=== PATIENT | female | born 1995 ===

== ENCOUNTER 2020-07-31 05:45 | Emergency (ER) | payer SELFPAY ==
[2020-07-31] MEDS ORDERED: DIPHENHYDRAMINE 25 MG TAB/CAP ONE (06:21)
[2020-07-31] MEDS ORDERED: FAMOTIDINE 20 MG TAB ONE (06:21)
[2020-07-31] MEDS ORDERED: predniSONE 20 MG TAB ONE (06:22)
--- NOTE | 2020-07-31 06:25 | ER ---
Nurse's Notes [facility] Name: Noe Etienne Age: 24 yrs Sex: Female : 1995 Arrival Date: 07/31/2020 Time: 05:50 Bed Waiting Private MD: Diagnosis: Allergic state Presentation: 07/31 05:59 Chief complaint: Patient states: she was at work yesterday and about the last hour of bb her shift she started itching a lot and started having swelling to her hands with bumps on her knees, thighs, and forearms she has been using benadry cream but it is not helping. Coronavirus screen: At this time, the client does not indicate any symptoms associated with coronavirus-19. Ebola Screen: No symptoms or risks identified at this time. Onset: The symptoms/episode began/occurred yesterday. Anaphylaxis evaluation, no signs or symptoms of anaphylaxis were noted. Initial Sepsis Screen: Does the patient meet any 2 criteria? No. Patient's initial sepsis screen is negative. Does the patient have a suspected source of infection? No. Patient's initial sepsis screen is negative. Risk Assessment: Do you want to hurt yourself or someone else? Patient reports no desire to harm self or others. Onset of symptoms was July 30, 2020. 05:59 Method Of Arrival: Ambulatory bb 05:59 Acuity: VERENICE 4 bb Triage Assessment: 06:02 General: Appears in no apparent distress. Behavior is calm, cooperative. Pain: Denies bb pain. Neuro: Level of Consciousness is awake, alert, obeys commands, Oriented to person, place, time, situation. Cardiovascular: Capillary refill < 3 seconds Patient's skin is warm and dry. Respiratory: Respiratory effort is even, unlabored, Respiratory pattern is regular. GI: No signs and/or symptoms were reported involving the gastrointestinal system. Derm: Rash noted that is papular. Musculoskeletal: Circulation, motion, and sensation intact. 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 - Social history:: Smoking status: Patient denies any tobacco usage or history of. Screenin:31 Abuse screen: Denies threats or abuse. Nutritional screening: No deficits noted. bb Tuberculosis screening: No symptoms or risk factors identified. Fall Risk None identified. Assessment: 06:12 Reassessment: Dr Ag in triage for pt evaluation. bb 06:31 Respiratory: Airway is patent Breath sounds are clear bilaterally. bb Vital Signs: 05:59 BP 117 / 83; Pulse 65; Resp 14 S; Temp 98.1(O); Pulse Ox 100% on R/A; Weight 68.04 kg bb (R); Height 5 ft. 9 in. (175.26 cm) (R); Pain 8/10; 05:59 Body Mass Index 22.15 (68.04 kg, 175.26 cm) bb 05:59 irritation bb ED Course: 05:50 Patient arrived in ED. ag3 06:01 Triage completed. bb 06:02 Arm band placed on. bb 06:23 Frank Ag MD is Attending Physician. tw4 06:31 Patient has correct armband on for positive identification. bb 06:31 No provider procedures requiring assistance completed. Patient did not have IV access bb during this emergency room visit. Administered Medications: 06:14 Drug: predniSONE 60 mg Route: PO; bb 06:30 Follow up: Response: No adverse reaction bb 06:14 Drug: Pepcid 20 mg Route: PO; bb 06:31 Follow up: Response: No adverse reaction bb 06:14 Drug: Benadryl 25 mg Route: PO; bb 06:31 Follow up: Response: No adverse reaction bb Outcome: 06:24 Discharge ordered by . tw4 06:31 Discharged to home ambulatory. bb 06:31 Condition: stable 06:31 Discharge instructions given to patient, Instructed on discharge instructions, follow up and referral plans. medication usage, Demonstrated understanding of instructions, follow-up care, medications, Prescriptions given X 2. 06:32 Patient left the ED. bb Signatures: Kathie Rudolph RN RN Frank Garcia MD MD tw4 Noemí Ramirez ag3
--- NOTE | 2020-07-31 06:25 | EDPHYS ---
Physician Documentation [facility] Name: Noe Etienne Age: 24 yrs Sex: Female : 1995 Arrival Date: 07/31/2020 Time: 05:50 Bed Waiting Private MD: ED Physician Frank Ag HPI: 07/31 06:27 This 24 yrs old Female presents to ER via Ambulatory with complaints of Itching, Skin tw4 Problem. 06:27 The patient presents with itching, rash. Onset: The symptoms/episode began/occurred tw4 just prior to arrival, today. Associated signs and symptoms: The patient has no apparent associated signs or symptoms. Possible causes: The patient has no known obvious cause for the symptoms. At home the patient or guardian has treated the symptoms with Benadryl. The patient has not experienced similar symptoms in the past. 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 - Social history:: Smoking status: Patient denies any tobacco usage or history of. ROS: 06:27 Constitutional: Negative for fever, chills, and weight loss, Eyes: Negative for injury, tw4 pain, redness, and discharge, Cardiovascular: Negative for chest pain, palpitations, and edema, Respiratory: Negative for shortness of breath, cough, wheezing, and pleuritic chest pain, Abdomen/GI: Negative for abdominal pain, nausea, vomiting, diarrhea, and constipation, Back: Negative for injury and pain. 06:27 Skin: Positive for rash. Exam: 06:27 Constitutional: This is a well developed, well nourished patient who is awake, alert, tw4 and in no acute distress. Head/Face: Normocephalic, atraumatic. Chest/axilla: Normal chest wall appearance and motion. Nontender with no deformity. No lesions are appreciated. Cardiovascular: Regular rate and rhythm with a normal S1 and S2. No gallops, murmurs, or rubs. Normal PMI, no JVD. No pulse deficits. Respiratory: Lungs have equal breath sounds bilaterally, clear to auscultation and percussion. No rales, rhonchi or wheezes noted. No increased work of breathing, no retractions or nasal flaring. Abdomen/GI: Soft, non-tender, with normal bowel sounds. No distension or tympany. No guarding or rebound. No evidence of tenderness throughout. MS/ Extremity: Pulses equal, no cyanosis. Neurovascular intact. Full, normal range of motion. Neuro: Awake and alert, GCS 15, oriented to person, place, time, and situation. Cranial nerves II-XII grossly intact. Motor strength 5/5 in all extremities. Sensory grossly intact. Cerebellar exam normal. Normal gait. 06:27 Skin: rash a moderate rash is noted, urticaria. Vital Signs: 05:59 BP 117 / 83; Pulse 65; Resp 14 S; Temp 98.1(O); Pulse Ox 100% on R/A; Weight 68.04 kg bb (R); Height 5 ft. 9 in. (175.26 cm) (R); Pain 8/10; 05:59 Body Mass Index 22.15 (68.04 kg, 175.26 cm) bb 05:59 irritation bb MDM: 06:24 Patient medically screened. tw4 06:28 Differential diagnosis: urticaria. Data reviewed: vital signs, nurses notes. Data tw4 interpreted: Pulse oximetry: Interpretation: normal. Counseling: I had a detailed discussion with the patient and/or guardian regarding: the historical points, exam findings, and any diagnostic results supporting the discharge/admit diagnosis. Special discussion: I discussed with the patient/guardian in detail that at this point there is no indication for admission to the hospital. It is understood, however, that if the symptoms persist or worsen the patient needs to return immediately for re-evaluation. Administered Medications: 06:14 Drug: predniSONE 60 mg Route: PO; bb 06:30 Follow up: Response: No adverse reaction bb 06:14 Drug: Pepcid 20 mg Route: PO; bb 06:31 Follow up: Response: No adverse reaction bb 06:14 Drug: Benadryl 25 mg Route: PO; bb 06:31 Follow up: Response: No adverse reaction bb Disposition: 07/31/20 06:24 Discharged to Home. Impression: Allergic state. - Condition is Stable. - Discharge Instructions: Allergies, Adult, Allergy Skin Testing. - Prescriptions for Pepcid 20 mg Oral Tablet - take 1 tablet by ORAL route every 12 hours for 10 days; 20 tablet. Medrol (Martinez) 4 mg Oral Tablets, Dose Pack - take 1 tablet by ORAL route as directed - follow package instructions; 1 packet. - Work release form, Medication Reconciliation Form, Thank You Letter, Antibiotic Education, Prescription Opioid Use form. - Follow up: Private Physician; When: Upon discharge from the Emergency Department; Reason: Recheck today's complaints, Continuance of care, Re-evaluation by your physician. - Problem is new. - Symptoms are unchanged. Signatures: Kathie Rudolph RN RN Frank Garcia MD MD tw4 Corrections: (The following items were deleted from the chart) 06:32 06:24 07/31/2020 06:24 Discharged to Home. Impression: Allergic state. Condition is bb Stable. Forms are Work release form, Medication Reconciliation Form, Thank You Letter, Antibiotic Education, Prescription Opioid Use. Follow up: Private Physician; When: Upon discharge from the Emergency Department; Reason: Recheck today's complaints, Continuance of care, Re-evaluation by your physician. Problem is new. Symptoms are unchanged. tw4
[2020-07-31 08:44] VITALS: BP 117/83; TEMP 98.1; O2SAT 100
== END 2020-07-31 06:32 | disposition home or self-care (01) ==
LOC: ER 05:45
DX: R21 Rash and other nonspecific skin eruption (principal)
CPT/HCPCS: 99283; J7512

== ENCOUNTER 2021-02-18 06:23 | Emergency (ER) | payer SELFPAY ==
[2021-02-18 07:25] LABS: Urine Blood 2+ (Negative); Urine Glucose Negative (Negative); Urine Protein Negative (Negative); Urine Specific Gravity 1.025 (1.005-1.030)
--- NOTE | 2021-02-18 07:38 | EDPHYS ---
Physician Documentation [facility] Name: Noe Etienne Age: 25 yrs Sex: Female : 1995 Arrival Date: 02/18/2021 Time: 06:27 Bed 17 Private MD: ED Physician Bryan Mullen HPI: 02/18 07:33 This 25 yrs old Female presents to ER via Ambulatory with complaints of Allergic rn Reaction. 07:33 The patient presents with rash, that is diffuse. Onset: The symptoms/episode rn began/occurred at an unknown time. Associated signs and symptoms: Pertinent positives: hives, Pertinent negatives: abdominal pain, fever, shortness of breath, swelling, Syncope vomiting. Possible causes: The patient has no known obvious cause for the symptoms. At home the patient or guardian has treated the symptoms with nothing. Severity of symptoms: At their worst the symptoms were mild in the emergency department the symptoms are unchanged. The patient has experienced a previous episode. Reports thinks is having an allergic reaction again, has had in past, + hives to arms/torso, no sob/abd pain/vomiting, reports steroids improved rash last time, no new exposure or idea what could trigger it. No fever. Also here because re-started her menstrual period after finishing one last week and is heavier than normal. Denies . Mother with fibroids. This is first time that she is irregular. . 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 - Social history:: Smoking status: Patient denies any tobacco usage or history of. - Family history:: not pertinent. - Hospitalizations: : No recent hospitalization is reported. ROS: 07:33 Constitutional: Negative for fever, chills, and weight loss, Eyes: Negative for injury, rn pain, redness, and discharge, Neck: Negative for injury, pain, and swelling, Cardiovascular: Negative for chest pain, palpitations, and edema, Respiratory: Negative for shortness of breath, cough, wheezing, and pleuritic chest pain, Abdomen/GI: Negative for abdominal pain, nausea, vomiting, diarrhea, and constipation, Back: Negative for injury and pain, : Negative for injury, discharge, and swelling, MS/Extremity: Negative for injury and deformity, Skin: + skin rash Neuro: Negative for headache, weakness, numbness, tingling, and seizure. Exam: 07:33 Constitutional: This is a well developed, well nourished patient who is awake, alert, rn and in no acute distress. Head/Face: Normocephalic, atraumatic. Eyes: Pupils equal round and reactive to light, extra-ocular motions intact. Lids and lashes normal. Conjunctiva and sclera are non-icteric and not injected. Cornea within normal limits. Periorbital areas with no swelling, redness, or edema. Cardiovascular: Regular rate and rhythm. No pulse deficits. Respiratory: No increased work of breathing, no retractions or nasal flaring. Abdomen/GI: soft, non-tender Skin: Warm, dry, + urticarial lesions on arms/torso, none on face. Neuro: Awake and alert, GCS 15 Vital Signs: 06:51 BP 108 / 71; Pulse 95; Resp 16; Temp 98.25; Pulse Ox 100% on R/A; Weight 68.49 kg; iw Height 5 ft. 9 in. (175.26 cm); 08:00 BP 100 / 60; Pulse 75; Resp 16; Pulse Ox 100% ; rb3 06:51 Body Mass Index 22.30 (68.49 kg, 175.26 cm) iw MDM: 07:02 Patient medically screened. rn 07:33 Differential diagnosis: urticaria, fibroids. Differential diagnosis: undiagnosed rn systemic autoimmune problem. Data reviewed: vital signs, nurses notes. Counseling: I had a detailed discussion with the patient and/or guardian regarding: the historical points, exam findings, and any diagnostic results supporting the discharge/admit diagnosis, the need for outpatient follow up, to return to the emergency department if symptoms worsen or persist or if there are any questions or concerns that arise at home. Special discussion: I discussed with the patient/guardian in detail that at this point there is no indication for admission to the hospital. It is understood, however, that if the symptoms persist or worsen the patient needs to return immediately for re-evaluation. Based on the history and exam findings, there is no indication for further emergent testing or inpatient evaluation. I discussed with the patient/guardian the need to see the OB Gyne specialist for further evaluation of the symptoms. I discussed with the patient/guardian the need to see the primary care provider for further evaluation of the symptoms. 02/18 07:25 Order name: Urine Dipstick-Ancillary [facility] 02/18 07:28 Order name: Urine --Ancillary (enter results) 02/18 07:19 Order name: Urine Dipstick-Ancillary (obtain specimen); Complete Time: 07:30 rn 02/18 07:19 Order name: Urine Test (obtain specimen); Complete Time: 07:30 rn Administered Medications: 08:12 Drug: predniSONE 60 mg Route: PO; rb3 08:12 Follow up: Response: Medication administered at discharge. rb3 Disposition: 02/18/21 07:37 Discharged to Home. Impression: Urticaria, unspecified, Other specified abnormal uterine and vaginal bleeding. - Condition is Stable. - Discharge Instructions: Abnormal Uterine Bleeding, Hives. - Prescriptions for Prednisone 20 mg Oral Tablet - take 3 tablet by ORAL route once daily for 5 days; 15 tablet. - Medication Reconciliation Form, Thank You Letter, Antibiotic Education, Prescription Opioid Use, Work release form form. - Follow up: Private Physician; When: As needed; Reason: Recheck today's complaints, Re-evaluation by your physician. - Problem is new. - Symptoms are unchanged. Signatures: Dispatcher [employer] [facility] Nadine White RN RN iw Nieto, Roman, MD MD rn Barber, Rebecca, RN RN rb3 Corrections: (The following items were deleted from the chart) 07:35 07:33 Constitutional: Negative for fever, chills, and weight loss, Eyes: Negative for rn injury, pain, redness, and discharge, Neck: Negative for injury, pain, and swelling, Cardiovascular: Negative for chest pain, palpitations, and edema, Respiratory: Negative for shortness of breath, cough, wheezing, and pleuritic chest pain, Abdomen/GI: Negative for abdominal pain, nausea, vomiting, diarrhea, and constipation, Back: Negative for injury and pain, : Negative for injury, bleeding, discharge, and swelling, MS/Extremity: Negative for injury and deformity, Skin: + skin rash Neuro: Negative for headache, weakness, numbness, tingling, and seizure, rn 08:15 07:37 02/18/2021 07:37 Discharged to Home. Impression: Urticaria, unspecified; Other rb3 specified abnormal uterine and vaginal bleeding. Condition is Stable. Forms are Medication Reconciliation Form, Thank You Letter, Antibiotic Education, Prescription Opioid Use. Follow up: Private Physician; When: As needed; Reason: Recheck today's complaints, Re-evaluation by your physician. Problem is new. Symptoms are unchanged. rn
--- NOTE | 2021-02-18 07:38 | ER ---
Nurse's Notes [facility] Name: Noe Etienne Age: 25 yrs Sex: Female : 1995 Arrival Date: 02/18/2021 Time: 06:27 Bed 17 Private MD: Diagnosis: Urticaria, unspecified;Other specified abnormal uterine and vaginal bleeding Presentation: 02/18 06:51 Chief complaint: Patient states: has had rash on right flank X 1 week, also has had a iw heavy period today with clots, period is irregular. Coronavirus screen: At this time, the client does not indicate any symptoms associated with coronavirus-19. Ebola Screen: Patient negative for fever greater than or equal to 101.5 degrees Fahrenheit, and additional compatible Ebola Virus Disease symptoms Patient denies exposure to infectious person. Patient denies travel to an Ebola-affected area in the 21 days before illness onset. No symptoms or risks identified at this time. Onset: The symptoms/episode began/occurred 1 week(s) ago. Anaphylaxis evaluation, no signs or symptoms of anaphylaxis were noted. Initial Sepsis Screen: Does the patient meet any 2 criteria? No. Patient's initial sepsis screen is negative. Does the patient have a suspected source of infection? No. Patient's initial sepsis screen is negative. Risk Assessment: Do you want to hurt yourself or someone else? Patient reports no desire to harm self or others. Onset of symptoms was February 12, 2021. 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 - Social history:: Smoking status: Patient denies any tobacco usage or history of. - Family history:: not pertinent. - Hospitalizations: : No recent hospitalization is reported. Screenin:02 Abuse screen: Denies threats or abuse. Nutritional screening: No deficits noted. rb3 Tuberculosis screening: No symptoms or risk factors identified. Fall Risk None identified. Assessment: 07:02 General: Appears in no apparent distress. Behavior is calm, cooperative. Pain: rb3 Complains of pain in abdomen Quality of pain is described as crampy. Neuro: Level of Consciousness is awake, alert, obeys commands, Oriented to person, place, time, situation. Cardiovascular: Patient's skin is warm and dry. Respiratory: Airway is patent Respiratory effort is even, unlabored. GI: No signs and/or symptoms were reported involving the gastrointestinal system. : Reports vaginal bleeding that is bright red, with clots, heavy flow since 3-4 days ago Menstrual cycle has been irregular. Derm: Rash noted that is on right flank has had rash for about a week. 08:00 Reassessment: Patient appears in no apparent distress at this time. No changes from rb3 previously documented assessment. Vital Signs: 06:51 BP 108 / 71; Pulse 95; Resp 16; Temp 98.25; Pulse Ox 100% on R/A; Weight 68.49 kg; iw Height 5 ft. 9 in. (175.26 cm); 08:00 BP 100 / 60; Pulse 75; Resp 16; Pulse Ox 100% ; rb3 06:51 Body Mass Index 22.30 (68.49 kg, 175.26 cm) iw ED Course: 06:27 Patient arrived in ED. es 06:53 Triage completed. iw 06:53 Arm band placed on. iw 06:57 Jimy Mackey MD is Attending Physician. [facility] 07:02 Attending Physician role handed off by Jimy Mackey MD rn 07:02 Bryan Mullen MD is Attending Physician. rn 07:02 Patient has correct armband on for positive identification. Bed in low position. Call rb3 light in reach. Side rails up X 1. 07:19 Apple Elliott, RN is Primary Nurse. rb3 08:14 No provider procedures requiring assistance completed. Patient did not have IV access rb3 during this emergency room visit. Administered Medications: 08:12 Drug: predniSONE 60 mg Route: PO; rb3 08:12 Follow up: Response: Medication administered at discharge. rb3 Outcome: 07:37 Discharge ordered by . rn 08:14 Discharged to home ambulatory. rb3 08:14 Condition: stable 08:14 Discharge instructions given to patient, Instructed on discharge instructions, follow up and referral plans. medication usage, Demonstrated understanding of instructions, follow-up care, medications, Prescriptions given X 1. 08:15 Patient left the ED. rb3 Signatures: Kenya Bocanegra Irene, RN RN iw Bryan Mullen MD MD rn Holmes, Maurice, MD MD [facility] Apple Elliott RN RN rb3 Corrections: (The following items were deleted from the chart) 06:54 06:51 Pulse 95bpm; Resp 16bpm; Pulse Ox 100% RA; Temp 98.25F; 68.49 kg; Height 5 ft. 9 iw in.; BMI: 22.3; iw
[2021-02-18 07:43] LABS: Urine Specific Gravity/Preg 1.025 (1.005-1.030)
[2021-02-18] MEDS ORDERED: predniSONE 20 MG TAB ONE ×2 (08:26→08:27)
[2021-02-18 08:32] VITALS: BP 100/60; O2SAT 100
== END 2021-02-18 08:15 | disposition home or self-care (01) ==
LOC: ER 06:23
DX: L50.9 Urticaria, unspecified (principal); N93.8 Other specified abnormal uterine and vaginal bleeding
CPT/HCPCS: 81003; 81025; 99283; J7512